=== PATIENT | female | born 1985 | race Caucasian/White ===

== ENCOUNTER 2017-09-29 08:22 | Day surgery (SDC) | payer BC ==
[2017-09-29] MEDS ORDERED: Morphine 4 MG/ML VIAL ONE (10:29)
[2017-09-29 10:40] LABS: #Basophils 0.1 thou/uL (0.0-0.2); #Eosinphils 0.1 thou/uL (0.0-0.7); #Lymphocytes 2.1 thou/uL (1.20-3.40); #Monocytes 0.4 thou/uL (0.11-0.59); #Neutrophils 3.5 thou/uL (1.40-6.50); %Eosinophils 1.7 % (0.0-10.0); %Lymphocytes 33.9 % (21.0-51.0); %Monocytes 6.9 % (0.0-10.0); Hematocrit 45.5 % (36.0-47.0); Mean Platelet Volume 6.5 fL (7.4-10.4); Red Blood Cell (RBC) Count 5.26 mill/uL (4.20-5.40); White Blood Cell (WBC) Count 6.2 thou/uL (4.8-10.8)
[2017-09-29 10:50] LABS: Prothrombin Time 13.4 SEC (12.0-14.7)
[2017-09-29 10:51] LABS: PTT 32.7 SEC (22.9-36.1)
[2017-09-29 10:55] LABS: Lactic Acid - Sepsis 0.9 mmol/L (0.5-2.2)
[2017-09-29 10:59] LABS: ALT (SGPT) 20 U/L (8-55); AST (SGOT) 19 U/L (5-34); Alkaline Phosphatase 76 U/L (40-150); Anion Gap 12 mmol/L (10-20); BUN (Urea Nitrogen) 10 mg/dL (7.0-18.7); Bilirubin, Total 0.5 mg/dL (0.2-1.2); Calc. Creatinine Clearance 0 mL/min (70-130); Calcium 9.7 mg/dL (7.8-10.44); Carbon Dioxide 23 mmol/L (22-29); Chloride 106 mmol/L (98-107); Estimated GFR-MDRD Greater than 90; Globulin 3.2 g/dL (2.4-3.5); Protein, Total 7.5 g/dL (6.0-8.3)
[2017-09-29 11:04] LABS: Bilirubin Small (Negative); Blood, Urine Large (Negative); Glucose, Urine (Dipstick) Negative (Negative); Ketone, Urine Negative (Negative); Nitrite Negative (Negative); Protein, Urine (Dipstick) 30 mg/dL (Neg-Trace); Urobilinogen 0.2 mg/dL (0.2-1.0)
[2017-09-29 11:22] LABS: Bacteria/HPF Rare-Few HPF (None Seen); Hyaline Casts/LPF NONE SEEN LPF (0-3 Hyaline); RBC/HPF GREATER THAN 50-TNTC HPF (0-3)
--- NOTE | 2017-09-29 11:33 | RAD ---
CHEST 1 VIEW ABDOMEN 2 VIEWS: Date: 09/29/17 HISTORY: Abdominal pain. FINDINGS: The cardiac silhouette and pulmonary vasculature are unremarkable. Mediastinum is midline. There is n o confluent air space consolidation or evidence of free subdiaphragmatic gas. Contrast material is present throughout the small and large bowel. There are no differential air flui d levels or evidence of free intraperitoneal gas. IMPRESSION: No significant abnormalities are demonstrated. POS: [facility]
--- NOTE | 2017-09-29 12:12 | CT ---
CT ABDOMEN AND PELVIS WITH IV AND ORAL CONTRAST: HISTORY: Abdominal pain. Ventral hernia. COMPARISON: 12/10/16. FINDINGS: The lung bases are clear. Tiny nonspecific low-density lesion within the posterior segment right gwen er lobe appears stable. Small hiatal hernia is apparent. The spleen, kidneys, adrenal glands, and p ancreas have a normal CT appearance. Urinary bladder is unremarkable. Fat protrudes through an umbilical hernia. No infiltration of the herniated fat or bowel content are evident. IMPRESSION: 1. Noncomplicated fat-containing umbilical hernia. 2. Small hiatal hernia. POS: [facility]
[2017-09-29] MEDS ORDERED: Promethazine HCl 25 MG/ML VIAL ONE ×4 (12:15→18:41)
[2017-09-29] MEDS ORDERED: CEFAZOLIN/Water 2 GM/20 ML SYRINGE ONE (14:29)
[2017-09-29] MEDS ORDERED: Bupivacaine/Epinephrine 0.25% 30 ML VIAL ONE (15:14)
[2017-09-29] MEDS ORDERED: Fentanyl 100 MCG/2 ML VIAL ONE ×2 (15:18→17:07)
[2017-09-29] MEDS ORDERED: Morphine 10 MG/ML VIAL ONE (15:40)
[2017-09-29] MEDS ORDERED: Lidocaine 1% PF 5 ML VIAL ONE (15:51)
[2017-09-29] MEDS ORDERED: Ondansetron HCl/PF 4 MG/2 ML Vial ONE (15:51)
[2017-09-29] MEDS ORDERED: Dexamethasone 20 MG/5 ML VIAL ONE (15:51)
[2017-09-29] MEDS ORDERED: Metoclopramide HCl 10 MG/2 ML VIAL ONE (15:51)
[2017-09-29] MEDS ORDERED: Propofol 200 MG/20 ML VIAL ONE (15:51)
[2017-09-29] MEDS ORDERED: Succinylcholine Chloride 20 MG/ML 10 ml SYRINGE FS ONE (15:51)
[2017-09-29] MEDS ORDERED: Ketorolac Tromethamine 30 MG/ML VIAL ONE (15:51)
[2017-09-29] MEDS ORDERED: ISOVUE-370 76%-LOCM 1 ML ONE (17:21)
[2017-09-29] MEDS ORDERED: Iopamidol 370 76% 50 ML VIAL FS ONE (17:21)
--- NOTE | 2017-09-29 17:45 | OP ---
PREOPERATIVE DIAGNOSIS: Incarcerated umbilical hernia. SURGEON: Steven Garcia M.D. PROCEDURE PERFORMED: Umbilical hernia repair with mesh. INDICATIONS: A 31-year-old female who had known umbilical hernia that suddenly became enlarged and p ainful, was unable to be reduced. FINDINGS: 1.5 cm defect, 4.6 cm piece of mesh used to repair it. It contained incarcerated fat, no bowel. DESCRIPTION OF PROCEDURE: After informed consent was obtained, the patient was taken to the operatin g room and given general endotracheal anesthesia, placed in the supine position. Her abdomen was pre pped and draped in the usual fashion. Local anesthesia infiltrated subcutaneously and deep. A supra umbilical incision was performed. The subcu divided sharply. The hernia sac was dissected out circu mferentially to the fascia and then excised. Reduction was performed and a 4.6 cm Proceed mesh was i nserted intra-abdominally. The wings were sutured to the abdominal wall with interrupted 0 Ethibond. Then, the umbilical skin was sutured to the fascia with interrupted 3-0 Vicryl and the skin closed with interrupted 4-0 Rapide. Hemostasis assured. Steri-Strips applied. Sterile bandage applied. T he patient tolerated the procedure well and transferred to recovery in good condition. Sponge and ne edle count verified correct x2.
[2017-09-29] MEDS ORDERED: traMADol HCl 50 MG TAB ONE (19:39)
== END 2017-09-29 20:00 | disposition home or self-care (01) ==
LOC: ERS 08:22 → SDC 13:59
PROVIDERS: ATTEND Surgery
PROC: 0WUF0JZ Supplement Abdominal Wall with Synthetic Substitute, Open Approach (ICD-10-PCS; principal; 2017-09-29)
DX: K42.0 Umbilical hernia with obstruction, without gangrene (principal); Z88.5 Allergy status to narcotic agent; Z88.2 Allergy status to sulfonamides
CPT/HCPCS: 74022; 74177; 80053; 81003; 81015; 83605; 84703; 85025; 85610; 85730; 93005; 96365; 96374; 96375; C1781; J1100; J1885; J2001; J2270; J2405; J2550; J2704; J2765; J3010

== ENCOUNTER 2018-01-16 19:38 | Emergency (ER) | payer BC ==
[2018-01-16] MEDS ORDERED: diphenhydrAMINE 50 MG/ML VIAL ONE (20:07)
[2018-01-16 20:33] LABS: BHCG - Serum Negative (NEGATIVE); Pregs Control Background? CLEAR/WHITE (CLR/WHITE); Pregs Control Bar Appear? YES (CONTROL BAR)
[2018-01-16 20:41] LABS: ALT (SGPT) 33 U/L (8-55); AST (SGOT) 24 U/L (5-34); Albumin 4.6 g/dL (3.5-5.0); Alkaline Phosphatase 85 U/L (40-150); Anion Gap 14 mmol/L (10-20); BUN (Urea Nitrogen) 10 mg/dL (7.0-18.7); Bilirubin, Total 0.5 mg/dL (0.2-1.2); Calc. Creatinine Clearance 0 mL/min (70-130); Carbon Dioxide 24 mmol/L (22-29); Chloride 105 mmol/L (98-107); Estimated GFR-MDRD Greater than 90; Globulin 3.4 g/dL (2.4-3.5); Glucose 97 mg/dL (70-105); Potassium 3.8 mmol/L (3.5-5.1); Sodium 139 mmol/L (136-145)
[2018-01-16 20:42] LABS: #Eosinphils 0.1 thou/uL (0.0-0.7); #Lymphocytes 2.3 thou/uL (1.20-3.40); #Monocytes 0.5 thou/uL (0.11-0.59); #Neutrophils 5.5 thou/uL (1.40-6.50); %Basophils 0.6 % (0.0-1.0); %Eosinophils 1.6 % (0.0-10.0); %Lymphocytes 27.5 % (21.0-51.0); %Monocytes 5.8 % (0.0-10.0); %Neutrophils 64.6 % (42.0-75.0); Hemoglobin 15.8 g/dL (12.0-16.0); Mean Corpuscular HGB CONC 33.4 g/dL (32.0-36.0); Mean Corpuscular Volume 83.7 fl (81.0-99.0); Mean Platelet Volume 7.3 fL (7.4-10.4); Platelet Count 362 thou/uL (130-400); RBC Distribution Width 11.6 % (11.5-14.5); Red Blood Cell (RBC) Count 5.63 mill/uL (4.20-5.40); White Blood Cell (WBC) Count 8.5 thou/uL (4.8-10.8)
[2018-01-16] MEDS ORDERED: Ondansetron HCl/PF 4 MG/2 ML Vial ONE (20:54)
== END 2018-01-16 22:14 | disposition home or self-care (01) ==
LOC: SCSER 19:38
DX: R11.10 Vomiting, unspecified (principal); T36.0X5A Adverse effect of penicillins, initial encounter; F41.9 Anxiety disorder, unspecified; Z79.899 Other long term (current) drug therapy
CPT/HCPCS: 80053; 84703; 85025; 96361; 96374; 96375; J1200; J2405

== ENCOUNTER 2019-08-04 17:24 | Emergency (ER) | payer BC ==
[2019-08-04] MEDS ORDERED: Ondansetron PF 4 MG/2 ML Vial ONE (17:51)
[2019-08-04 18:04] LABS: Bilirubin Negative (Negative); Blood, Urine Negative (Negative); Glucose, Urine (Dipstick) Negative (Negative); Leukocyte Moderate (Negative); Nitrite Negative (Negative); Protein, Urine (Dipstick) 30 mg/dL (Neg-Trace)
[2019-08-04 18:07] LABS: Clarity Cloudy (Clear)
[2019-08-04 18:11] LABS: #Basophils 0.1 thou/uL (0.0-0.2); #Eosinphils 0.1 thou/uL (0.0-0.7); #Lymphocytes 2.4 thou/uL (1.20-3.40); #Monocytes 0.5 thou/uL (0.11-0.59); #Neutrophils 6.7 thou/uL (1.40-6.50); %Basophils 0.6 % (0.0-1.0); %Eosinophils 1.4 % (0.0-10.0); %Lymphocytes 24.3 % (21.0-51.0); %Monocytes 5.2 % (0.0-10.0); %Neutrophils 68.6 % (42.0-75.0); Mean Corpuscular HGB CONC 34.5 g/dL (32.0-36.0); Mean Corpuscular Hemoglobin 28.7 pg (27.0-31.0); Mean Platelet Volume 6.4 fL (7.4-10.4); Platelet Count 374 thou/uL (130-400); RBC Distribution Width 11.7 % (11.5-14.5); Red Blood Cell (RBC) Count 4.87 mill/uL (4.20-5.40); White Blood Cell (WBC) Count 9.8 thou/uL (4.8-10.8)
[2019-08-04 18:14] LABS: Bacteria/HPF 2+ HPF (None Seen); RBC/HPF None Seen HPF (0-3); Squamous Epithelial Greater than 50 HPF (0-3)
[2019-08-04 18:24] LABS: ALT (SGPT) 21 U/L (8-55); AST (SGOT) 13 U/L (5-34); Albumin 4.1 g/dL (3.5-5.0); Alkaline Phosphatase 65 U/L (40-150); Anion Gap 14 mmol/L (10-20); BUN (Urea Nitrogen) 9 mg/dL (7.0-18.7); Bilirubin, Total 0.3 mg/dL (0.2-1.2); Calc. Creatinine Clearance 0 mL/min (70-130); Calcium 9.7 mg/dL (7.8-10.44); Carbon Dioxide 24 mmol/L (22-29); Chloride 108 mmol/L (98-107); Estimated GFR-MDRD Greater than 90; Globulin 3.2 g/dL (2.4-3.5); Glucose 85 mg/dL (70-105); Lipase 27 U/L (8-78); Potassium 3.9 mmol/L (3.5-5.1); Protein, Total 7.3 g/dL (6.0-8.3); Sodium 142 mmol/L (136-145)
== END 2019-08-04 19:17 | disposition home or self-care (01) ==
LOC: SCSER 17:24
DX: O21.9 Vomiting of pregnancy, unspecified (principal); O23.41 Unspecified infection of urinary tract in pregnancy, first trimester; O99.89 Other specified diseases and conditions complicating pregnancy, childbirth and the puerperium; R10.13 Epigastric pain; O99.341 Other mental disorders complicating pregnancy, first trimester; F41.9 Anxiety disorder, unspecified; F43.10 Post-traumatic stress disorder, unspecified; Z3A.10 10 weeks gestation of pregnancy
CPT/HCPCS: 36415; 80053; 81003; 81015; 83690; 85025; 87086; 96374; J2405

== ENCOUNTER 2019-09-22 19:36 | Emergency (ER) | payer BC ==
[2019-09-22 20:07] LABS: #Eosinphils 0.1 thou/uL (0.0-0.7); #Lymphocytes 2.5 thou/uL (1.20-3.40); #Monocytes 0.6 thou/uL (0.11-0.59); #Neutrophils 8.2 thou/uL (1.40-6.50); %Basophils 0.4 % (0.0-1.0); %Lymphocytes 21.6 % (21.0-51.0); %Monocytes 4.9 % (0.0-10.0); %Neutrophils 72.2 % (42.0-75.0); Hemoglobin 12.7 g/dL (12.0-16.0); Mean Corpuscular HGB CONC 34.4 g/dL (32.0-36.0); Mean Corpuscular Hemoglobin 28.6 pg (27.0-31.0); Mean Corpuscular Volume 83.1 fL (78.0-98.0); Mean Platelet Volume 6.6 fL (7.4-10.4); Platelet Count 330 thou/uL (130-400); RBC Distribution Width 11.5 % (11.5-14.5); Red Blood Cell (RBC) Count 4.43 mill/uL (4.20-5.40); White Blood Cell (WBC) Count 11.4 thou/uL (4.8-10.8)
[2019-09-22 20:24] LABS: ALT (SGPT) 14 U/L (8-55); AST (SGOT) 12 U/L (5-34); Albumin 3.8 g/dL (3.5-5.0); Alkaline Phosphatase 52 U/L (40-110); Anion Gap 14 mmol/L (10-20); BUN (Urea Nitrogen) 7 mg/dL (7.0-18.7); Bilirubin, Total 0.2 mg/dL (0.2-1.2); Calc. Creatinine Clearance 0 mL/min (70-130); Calcium 9.3 mg/dL (7.8-10.44); Carbon Dioxide 20 mmol/L (22-29); Chloride 108 mmol/L (98-107); Estimated GFR-MDRD Greater than 90; Globulin 3.1 g/dL (2.4-3.5); Glucose 109 mg/dL (70-105); Lipase 28 U/L (8-78); Potassium 3.4 mmol/L (3.5-5.1); Protein, Total 6.9 g/dL (6.0-8.3); Sodium 139 mmol/L (136-145)
[2019-09-22 20:59] LABS: Bilirubin Negative (Negative); Blood, Urine Negative (Negative); Clarity Cloudy (Clear); Glucose, Urine (Dipstick) Negative (Negative); Leukocyte Negative (Negative); Nitrite Negative (Negative); Protein, Urine (Dipstick) Negative (Neg-Trace); Urobilinogen 0.2 mg/dL (Less than 2)
--- NOTE | 2019-09-22 22:16 | ULT ---
EXAM: OB ultrasound COMPARISON: None HISTORY: Positive . Patient has left lower quadrant pain. Patient is approximately 15 weeks . TECHNIQUE: Multiplanar grayscale and color Doppler transabdominal sonographic images are obtained. FINDINGS: There is a single intrauterine gestation in cephalic presentation. Cardiac Doppler demonstr ates heart tones with a heart rate of 150 beats per minute. The placenta is located posteriorly. Some of the images question the possibility of a low-lying placenta; although, this may be projectional as other images do not suggest evidence of placenta previa. Follow-up evaluation is recommended. without evidence of placenta previa. Subjectively, there is a normal amount of amniotic fluid. An amniotic fluid index was not calculated. The cervical length based on transabdominal imaging measures 4.1 centimeters. biometry measurements: BPD 3.28 cm -- 16 weeks 1 day HC 12.63 cm -- 16 weeks 3 days AC 9.88 cm -- 16 weeks FL 1.98 cm -- 15 weeks 6 days The estimated gestational age by ultrasound is 16 weeks 1 day with an JAYLAN on03/07/2020. Gestational ag e by the last menstrual period is 15 weeks 2 days. The estimated weight by ultrasound is 141 g (5 ounces). This represents 85 percentile for weight. A 4 chambered heart is visualized. The visualized portions of the spine, stomach, and kidneys d emonstrate a normal sonographic appearance. Urinary bladder is mostly decompressed and not well evaluated. The cord insertion and three-vessel cord are not seen. No definite anomalies are seen on this exam. The ovaries are visualized bilaterally with arterial flow in each ovary IMPRESSION: 1. On initial imaging of the lower uterine segment, there does not appear to be evidence of placenta previa. However, additional imaging throughout the examination questions the possibility of a low-lying placenta. The appearance of low-lying placenta on additional imaging may be secondary to pl ane of imaging and positioning of the probe. Nevertheless, follow-up evaluation in 4 weeks is recommended to evaluate the leading edge of the placenta in relation to the cervical os. 2. Single intrauterine gestation in cephalic presentation with heart tones documented. Estimat ed gestational age by ultrasound is 16 weeks 1 day. 3. Estimated weight is 141 g (5 ounces).
[2019-09-25 00:40] LABS: Chlamydia by PCR Not Detected (NotDetected); GC by PCR Not Detected (NotDetected)
== END 2019-09-22 22:13 | disposition home or self-care (01) ==
LOC: SCSER 19:36
DX: O99.89 Other specified diseases and conditions complicating pregnancy, childbirth and the puerperium (principal); R10.32 Left lower quadrant pain; O99.342 Other mental disorders complicating pregnancy, second trimester; F41.9 Anxiety disorder, unspecified; F32.9 Major depressive disorder, single episode, unspecified; F43.10 Post-traumatic stress disorder, unspecified; Z3A.15 15 weeks gestation of pregnancy
CPT/HCPCS: 36415; 76815; 80053; 81003; 83690; 85025; 87480; 87491; 87510; 87591; 87660

== ENCOUNTER 2021-04-16 15:35 | Outpatient (CLI) | payer BC | END 2021-04-16 15:36 | disposition home or self-care (01) | LOC: CTENTCT 15:35 | PROVIDERS: ATTEND Specialist | DX: J32.9 Chronic sinusitis, unspecified (principal) | CPT/HCPCS: 70486 ==

== ENCOUNTER 2021-05-06 09:11 | Day surgery (SDC) | payer BC ==
[2021-05-05 13:15] VITALS: BMI 25.7
[2021-05-06] MEDS ORDERED: AFRIN NASAL MIST 15 ML BOT ONE (10:35)
[2021-05-06] MEDS ORDERED: Fentanyl 100 MCG/2 ML VIAL ONE (11:24)
[2021-05-06] MEDS ORDERED: Midazolam HCl 2 mg/2 ml Vial ONE (11:24)
[2021-05-06] MEDS ORDERED: Bacitracin Zinc Ointment 30 gm TUBE ONE (11:24)
[2021-05-06] MEDS ORDERED: EPINEPHrine 1 MG/10 ML Abboject SYRINGE ONE (11:24)
[2021-05-06] MEDS ORDERED: Lidocaine 1% w/Epinephrine 1:100K 20 ML VIAL ONE (11:24)
[2021-05-06] MEDS ORDERED: Dexamethasone 20 MG/5 ML VIAL ONE (11:45)
[2021-05-06] MEDS ORDERED: PROPOFOL 200 MG/20 ML VIAL ONE (11:45)
[2021-05-06] MEDS ORDERED: Rocuronium Bromide 10 MG/ML (10ML VIAL) ONE (11:45)
[2021-05-06] MEDS ORDERED: Ondansetron PF 4 MG/2 ML Vial ONE ×2 (11:45→13:39)
[2021-05-06] MEDS ORDERED: Glycopyrrolate 0.2 MG/ML 5 ML SYRINGE ONE (11:45)
[2021-05-06] MEDS ORDERED: Lidocaine 1% PF 5 ML VIAL ONE (11:45)
[2021-05-06] MEDS ORDERED: Promethazine HCl 25 MG/ML VIAL ONE (13:40)
[2021-05-06] MEDS ORDERED: Morphine 2 MG/ML VIAL ONE (14:21)
[2021-05-06] MEDS ORDERED: traMADol HCl 50 MG TAB ONE ×2 (15:08→15:10)
== END 2021-05-06 15:45 | disposition home or self-care (01) ==
LOC: SDC 09:11
PROVIDERS: ATTEND Specialist
PROC: 099Q8ZZ Drainage of Right Maxillary Sinus, Via Natural or Artificial Opening Endoscopic (ICD-10-PCS; principal; 2021-05-06)
PROC: 09TU8ZZ Resection of Right Ethmoid Sinus, Via Natural or Artificial Opening Endoscopic (ICD-10-PCS; principal; 2021-05-06)
PROC: 09BL8ZZ Excision of Nasal Turbinate, Via Natural or Artificial Opening Endoscopic (ICD-10-PCS; principal; 2021-05-06)
PROC: 8E09XBZ Computer Assisted Procedure of Head and Neck Region (ICD-10-PCS; principal; 2021-05-06)
PROC: 09BM8ZZ Excision of Nasal Septum, Via Natural or Artificial Opening Endoscopic (ICD-10-PCS; principal; 2021-05-06)
PROC: 09BT8ZZ Excision of Left Frontal Sinus, Via Natural or Artificial Opening Endoscopic (ICD-10-PCS; principal; 2021-05-06)
PROC: 09TV8ZZ Resection of Left Ethmoid Sinus, Via Natural or Artificial Opening Endoscopic (ICD-10-PCS; principal; 2021-05-06)
PROC: 099R8ZZ Drainage of Left Maxillary Sinus, Via Natural or Artificial Opening Endoscopic (ICD-10-PCS; principal; 2021-05-06)
PROC: 09BS8ZZ Excision of Right Frontal Sinus, Via Natural or Artificial Opening Endoscopic (ICD-10-PCS; principal; 2021-05-06)
DX: J32.8 Other chronic sinusitis (principal); J34.2 Deviated nasal septum; J34.3 Hypertrophy of nasal turbinates; K21.9 Gastro-esophageal reflux disease without esophagitis; J30.1 Allergic rhinitis due to pollen; J30.81 Allergic rhinitis due to animal (cat) (dog) hair and dander; J30.89 Other allergic rhinitis; Z88.0 Allergy status to penicillin; Z88.1 Allergy status to other antibiotic agents; Z88.5 Allergy status to narcotic agent
CPT/HCPCS: 85014; J0171; J1100; J2250; J2270; J2405; J2550; J2704; J3010

== ENCOUNTER 2023-10-02 16:11 | Outpatient (CLI) | payer BC | END 2023-10-02 16:12 | disposition home or self-care (01) | LOC: SCSRAD 16:11 | PROVIDERS: ATTEND Internal Medicine Rheumatology | DX: M46.1 Sacroiliitis, not elsewhere classified (principal) | CPT/HCPCS: 72202 ==